=== PATIENT | female | born 1970 | race Caucasian/White ===

== ENCOUNTER 2017-04-18 08:04 | Emergency (ER) | payer BC ==
[~2017-04-18] VITALS: Ht 162.6 cm; Wt 143.2 kg
[~2017-04-18 08:04] MED LIST: 00186-0370-20 IH; ALDOMET PO; ASPIRIN 32325 MG/TAB PO; CELEXA 20MG20 MG/TAB PO; COMBIVENT INH14.7 GM IH; DOXYCYCLINE 10100 MG PO; FORTAMET500 MG PO; GLYBURIDE MICRON3 MG PO; HUMALOG100 U/ML SC; INSULIN HUMA100 U/ML SQ; ISOPTIN PO; LASIX 20MG TABL20 MG PO; LEVEMIR SQ; LISINOPRIL/HYDR1 TAB PO; NEW BLOOD PRESSURE; NO HOME MEDICATIONS; PERCOCET 5/321 UDTAB PO; PREDNISONE20 MG PO; PRENATAL VITAMI1 TA5 PO; PRILOSEC 20MG20 MG PO; RELAFEN 50500 MG/TAB PO; TAMBOCOR50 MG PO; ULTRAM 50MG TAB50 MG PO; VENTOLIN0.09 MG IH; VERAPAMIL 440 MG/TAB PO; VERAPAMIL240 MG PO; VERAPAMIL240 MG/TAB PO; ZESTRIL 20MG TA20 MG PO; ZITHROMAX Z PA250 MG PO; ZOCOR 20MG20 MG PO
[2017-04-18 08:49] LABS: BASO # 0.1 (0.0-0.2); BASO % 0.7 % (0.0-2.0); EOS # 0.3 (0.0-0.7); EOS % 3.3 % (0-4.0); GRAN # 5.2 (1.4-6.5); GRAN % 68.2 % (42.2-75.2); HEMATOCRIT 46.7 % (37.0-47.0); HEMOGLOBIN 14.7 g/dl (12.5-16.0); LYMPH # 1.8 (1.2-3.4); LYMPH % 23.3 % (20.0-51.0); MEAN CELL VOLUME 85 fl (80.0-100.0); MEAN CORPUSCULAR HEMOGLOBIN 27 pg (27.0-31.0); MEAN CORPUSCULAR HGB CONC 32 g/dl (33.0-37.0); MEAN PLATELET VOLUME 11.2 fl (7.4-10.4); MONO # 0.3 (0.1-0.6); MONO % 4.1 % (1.7-9.3); PLATELET COUNT 205 K/mm3 (130-400); RED BLOOD COUNT 5.52 M/mm3 (4.10-5.30); REDCELL DISTRIBUTION WIDTH-CV 14.6 % (11.5-14.5); WHITE BLOOD COUNT 7.6 K/mm3 (4.8-10.8)
[2017-04-18 09:02] LABS: ADJUSTED CALCIUM 9.2 mg/dL (8.4-10.2); ALANINE AMINOTRANSFERASE 21 U/L (9-52); ALBUMIN 3.8 gm/dL (3.5-5.0); ALKALINE PHOSPHATASE 71 U/L (50-136); ANION GAP 11 mmol/L (7-16); BILIRUBIN,TOTAL 0.7 mg/dL (0.0-1.0); BLOOD UREA NITROGEN 12 mg/dL (7-17); CARBON DIOXIDE 21 mmol/L (22-30); CHLORIDE 107 mmol/L (98-107); CREATINE KINASE 74 U/L (30-135); CREATININE, serum 0.63 mg/dL (0.52-1.25); GLUCOSE 105 mg/dL (74-106); INR 1.1 (0.8-3.0); LIPASE 93 U/L (23-300); POTASSIUM 4.4 mmol/L (3.4-5.0); SODIUM 139 mmol/L (137-145); TOTAL PROTEIN 6.9 gm/dL (6.4-8.2)
[2017-04-18 09:11] LABS: B-TYPE NATRIURETIC PEPTIDE 107 pg/mL (0-125)
[2017-04-18 09:18] LABS: TROPONIN-I < 0.012 ng/mL (0.000-0.034)
[2017-04-18 13:00] VITALS: BP 136/74; PULSE 68
== END 2017-04-18 13:15 | disposition home or self-care (01) ==
LOC: COL.ER 08:04
PROVIDERS: Emergency Medicine
DX: R07.9 Chest pain, unspecified (principal); R51 Headache; I10 Essential (primary) hypertension; E11.9 Type 2 diabetes mellitus without complications; E78.5 Hyperlipidemia, unspecified; F17.210 Nicotine dependence, cigarettes, uncomplicated; Z98.890 Other specified postprocedural states; Z95.0 Presence of cardiac pacemaker; Z79.82 Long term (current) use of aspirin
CPT/HCPCS: J1885; J2270; J2405

== ENCOUNTER 2020-04-19 20:37 | Emergency (ER) | payer BC ==
[~2020-04-19] VITALS: Ht 162.6 cm; Wt 140.9 kg
[2020-04-19 20:48] VITALS: TEMP 97.8
[2020-04-19 22:09] LABS: BASO # 0.1 (0.0-0.2); BASO % 0.5 % (0.0-2.0); EOS # 0.4 (0.0-0.7); EOS % 4.1 % (0-4.0); GRAN # 6.6 (1.4-6.5); GRAN % 68.1 % (42.2-75.2); HEMATOCRIT 46.3 % (37.0-47.0); HEMOGLOBIN 14.6 g/dl (12.5-16.0); LYMPH # 2.2 (1.2-3.4); LYMPH % 22.3 % (20.0-51.0); MEAN CELL VOLUME 87 fl (80.0-100.0); MEAN CORPUSCULAR HEMOGLOBIN 27 pg (27.0-31.0); MEAN CORPUSCULAR HGB CONC 32 g/dl (33.0-37.0); MEAN PLATELET VOLUME 11.7 fl (7.4-10.4); MONO # 0.5 (0.1-0.6); MONO % 4.7 % (1.7-9.3); PLATELET COUNT 232 K/mm3 (130-400); RED BLOOD COUNT 5.35 M/mm3 (4.10-5.30); REDCELL DISTRIBUTION WIDTH-CV 14.3 % (11.5-14.5)
[2020-04-19 22:17] LABS: ALBUMIN 3.9 gm/dL (3.5-5.0); BILIRUBIN,TOTAL 0.4 mg/dL (0.0-1.0); CALCIUM 8.5 mg/dL (8.4-10.2); CREATININE, serum 0.82 (0.52-1.25); POTASSIUM 4.1 mmol/L (3.4-5.0)
[2020-04-20 02:00] VITALS: BP 138/65; PULSE 81
== END 2020-04-20 02:10 | disposition home or self-care (01) ==
LOC: COL.ER 20:37
PROVIDERS: Emergency Medicine
DX: S05.02XA Injury of conjunctiva and corneal abrasion without foreign body, left eye, initial encounter (principal); H57.04 Mydriasis; I10 Essential (primary) hypertension; Z79.51 Long term (current) use of inhaled steroids; Z79.82 Long term (current) use of aspirin; X58.XXXA Exposure to other specified factors, initial encounter
CPT/HCPCS: J2405; J3010; J7030; Q9967

== ENCOUNTER 2024-02-20 10:20 | Day surgery (SDC) | payer BC ==
[~2024-02-20] VITALS: Ht 160 cm; Wt 125.4 kg
[~2024-02-20 10:20] MED LIST changes: +LR 1,000 ML IV SCH; +Ondansetron 4 MG/2 ML VIAL IV PRN
[2024-02-20] MEDS ORDERED: ASPIRIN 81M81 MG/TA2 PO (10:54)
[2024-02-20] MEDS ORDERED: LIPITOR 80MG80 MG PO (10:58)
[2024-02-20] MEDS ORDERED: JARDIANCE25 (10:58)
[2024-02-20] MEDS ORDERED: TIROSINT25 MC1 PO (10:59)
[2024-02-20] MEDS ORDERED: TOUJEO300 U/ML SQ (11:00)
[2024-02-20] MEDS ORDERED: D3-5050000 IU PO (11:00)
[2024-02-20] MEDS ORDERED: OZEMPIC0.25 MG/02 SQ (11:01)
[2024-02-20] MEDS ORDERED: PROTONIX 40MG T40 MG PO (11:01)
[2024-02-20] MEDS ORDERED: BUSPAR5 MG PO (11:02)
[2024-02-20] MEDS ORDERED: PLAVIX 75MG TAB75 MG PO (11:02)
[2024-02-20] MEDS ORDERED: ZETIA 10MG TAB10 MG PO (11:02)
[2024-02-20] MEDS ORDERED: AMITRIPTYLINE H10 M1 PO (11:03)
[2024-02-20] MEDS ORDERED: LOPRESSOR100 MG PO (11:03)
[2024-02-20] MEDS ORDERED: IMDUR 30MG30 MG/TAB PO (11:03)
[2024-02-20 11:48] VITALS: BP 117/72; PULSE 70; TEMP 98.6
[2024-02-20] MEDS ORDERED: Lidocaine PF 2% (20 MG/ML) 5 ML VIAL ONE (12:07)
[2024-02-20 12:50] VITALS: BP 110/53; PULSE 74
[2024-02-20 13:05] VITALS: BP 115/55; PULSE 75
[2024-02-20 13:25] VITALS: BP 117/66; PULSE 78
--- NOTE | 2024-02-20 13:32 | NUR ---
1250 PATIENT RETURNS TO [facility] [place]IA CART. PT AWAKE AND ALERT. RESPIRATIONS UNLABORED. AMBULATED TO RECLINER CHAIR WITH 2:1 SBA. PT DENIES NAUSEA OR ABDOMINAL PAIN. HOOKED UP TO MONITOR AND VS OBTAINED. CALL LIGHT AT SIDE AND PRESENT. 1255 PATIENT TOLERATING COFFEE AND MUFFIN WITHOUT NAUSEA OR DIFFICULTY SWALLOWING (EGD ONLY). 1300 IN ROOM SPEAKING WITH PATIENT. 1315 D/C INSTRUCTIONS REVIEWED WITH PATIENT. PT VERBALIZED UNDERSTANDING AND A COPY OF INSTRUCTIONS PROVIDED IN D/C FOLDER. 1325 PATIENT DRESSES SELF. 1335 PATIENT DISCHARGED FROM UNIT VIA W/C TO A PERSONAL VEHICLE. PT LEFT HOSPITAL IN STABLE CONDITION.
== END 2024-02-20 13:35 | disposition home or self-care (01) ==
LOC: SDCO 10:20
DX: Z12.11 Encounter for screening for malignant neoplasm of colon (principal); Z80.0 Family history of malignant neoplasm of digestive organs; D12.4 Benign neoplasm of descending colon; K57.30 Diverticulosis of large intestine without perforation or abscess without bleeding; E11.9 Type 2 diabetes mellitus without complications; E66.01 Morbid (severe) obesity due to excess calories; F17.210 Nicotine dependence, cigarettes, uncomplicated; Z79.85 Long-term (current) use of injectable non-insulin antidiabetic drugs; Z79.84 Long term (current) use of oral hypoglycemic drugs; Z95.0 Presence of cardiac pacemaker
CPT/HCPCS: J2704; J7120